=== PATIENT | female | born 1965 | race Caucasian/White ===

== ENCOUNTER 2016-10-07 23:45 | Emergency (ER) | payer OTHER ==
[~2016-10-07] VITALS: Ht 162.6 cm; Wt 86.5 kg
[2016-10-08] MEDS ORDERED: ONDANSETRON 4MG ODT PO PRN ×2 (01:15→06:15)
[2016-10-08 01:27] LABS: BASOPHILS % 0.7 % (0.0-2.0); EOSINOPHILS % 0.1 % (0.0-5.0); HEMOGLOBIN. 13.4 g/dL (12.0-16.0); LYMPHOCYTES % 29.3 % (20.0-50.0); MEAN CORPUSCULAR HEMOGLOBIN 30.8 pg (28.0-32.0); MEAN CORPUSCULAR VOLUME 91.8 fL (81.0-99.0); MEAN PLATELET VOLUME 9.4 fl (7.4-10.4); MONOCYTES % 6.5 % (2.0-8.0); NEUTROPHILS % 63.4 % (40.0-76.0); PLATELET 194 x1000/uL (130-400); RED BLOOD CELL COUNT 4.35 mill/uL (4.2-5.4); RED CELL DISTRIBUTION WIDTH 13.9 % (11.6-14.6)
[2016-10-08] MEDS ORDERED: ONDANSETRON HCL 4MG/2ML VIAL IV NR (01:28)
[2016-10-08] MEDS ORDERED: SODIUM CHLORIDE 0.9% 1,000 ML IV ONE (01:28)
[2016-10-08] MEDS ORDERED: MORPHINE SULFATE 4 MG/ML CPJ (NOT FOR IM USE) IV NR (01:28)
[2016-10-08 01:29] LABS: CHLORIDE 101 mEq/L (98-107)
[2016-10-08 01:39] LABS: CARBON DIOXIDE 25 mEq/L (21-32)
[2016-10-08 01:48] LABS: INR 1.1; PROTHROMBIN TIME 11.2 sec
[2016-10-08 02:50] LABS: CLARITY URINE CLEAR (CLEAR); COLOR URINE YELLOW (YELLOW); GLUCOSE URINE NEGATIVE (NEGATIVE); KETONES URINE NEGATIVE (NEGATIVE); LEUKOCYTE ESTERASE URINE NEGATIVE (NEGATIVE); NITRITE URINE NEGATIVE (NEGATIVE); OCCULT BLOOD URINE 2+ (NEGATIVE); PROTEIN URINE NEGATIVE (NEGATIVE); SPECIFIC GRAVITY URINE 1.013 (1.005-1.030); UROBILINOGEN URINE 0.2 E.U./dL (0.2-1.0)
[2016-10-08] MEDS ORDERED: MAGNESIUM/ALUMINUM HYDROXIDE/SIMETHICONE 30ML UDC PO NR (03:46)
[2016-10-08] MEDS ORDERED: VISCOUS LIDOCAINE 2% 15 ML UDC PO NR (03:46)
[2016-10-08] MEDS ORDERED: FAMOTIDINE 20MG/2ML VIAL IV NR (03:46)
[2016-10-08] MEDS ORDERED: MORPHINE SULFATE 4 MG/ML CPJ (NOT FOR IM USE) IV ONE (04:15)
[2016-10-08] MEDS ORDERED: HYDROCODONE/APAP 7.5/325MG 1 TAB TABLET PO ONE (06:15)
[2016-10-08 07:26] VITALS: BP 105/54
== END 2016-10-08 08:40 | disposition home or self-care (01) ==
LOC: ER 23:49
DX: K52.9 Noninfective gastroenteritis and colitis, unspecified (principal); G89.29 Other chronic pain; K59.00 Constipation, unspecified; J44.9 Chronic obstructive pulmonary disease, unspecified; F31.9 Bipolar disorder, unspecified; Z90.89 Acquired absence of other organs; Z88.2 Allergy status to sulfonamides
CPT/HCPCS: 36415; 74176; 80053; 81001; 83690; 85025; 85610; 96361; 96374; 96375; 96376; 99285; J2270; J2405; J3490; J7030; Q0162; Z7610

== ENCOUNTER 2017-06-04 15:35 | Emergency (ER) | payer MEDICARE, OTHER ==
[~2017-06-04] VITALS: Ht 165.1 cm; Wt 70.0 kg
[2017-06-04] MEDS ORDERED: DIPHENHYDRAMINE 50MG/ML VIAL IM STA (18:40)
[2017-06-04] MEDS ORDERED: LORAZEPAM 2MG/ML CPJ IM STA (18:40)
[2017-06-04] MEDS ORDERED: OLANZAPINE 10 MG/VIAL IM STA (18:40)
[2017-06-04 21:53] LABS: CHLORIDE 96 mEq/L (98-107)
[2017-06-04 21:55] LABS: HEMOGLOBIN. 13.5 g/dL (12.0-16.0); MEAN CORPUSCULAR HEMOGLOBIN 31.1 pg (28.0-32.0); MEAN CORPUSCULAR VOLUME 92.4 fL (81.0-99.0); MEAN PLATELET VOLUME 9.4 fl (7.4-10.4); PLATELET 206 x1000/uL (130-400); RED BLOOD CELL COUNT 4.33 mill/uL (4.2-5.4); RED CELL DISTRIBUTION WIDTH 13.5 % (11.6-14.6)
[2017-06-04 21:58] LABS: ETHANOL BLOOD < 10 mg/dL
[2017-06-04 22:26] LABS: PLATELET ESTIMATE NORMAL
[2017-06-04 23:59] LABS: CLARITY URINE TURBID (CLEAR); COLOR URINE YELLOW (YELLOW); KETONES URINE 1+ (NEGATIVE); LEUKOCYTE ESTERASE URINE 1+ (NEGATIVE); NITRITE URINE NEGATIVE (NEGATIVE); OCCULT BLOOD URINE 2+ (NEGATIVE); PH URINE 5.5 (4.5-8.0); PROTEIN URINE 2+ (NEGATIVE); SPECIFIC GRAVITY URINE 1.016 (1.005-1.030); UROBILINOGEN URINE 0.2 E.U./dL (0.2-1.0)
[2017-06-05 00:57] LABS: *AMPHETAMINES SCREEN URINE NEGATIVE (NEGATIVE); *BARBITURATES SCREEN URINE NEGATIVE (NEGATIVE); *BENZODIAZEPINES SCREEN URINE PRESUMTIVE POSITIVE (NEGATIVE); *COCAINE SCREEN URINE NEGATIVE (NEGATIVE); CANNABINOID URINE SCREEN NEGATIVE (NEGATIVE); METHADONE URINE SCREEN NEGATIVE (NEGATIVE); OPIATES URINE SCREEN PRESUMTIVE POSITIVE (NEGATIVE); PHENCYCLIDINE URINE SCREEN NEGATIVE (NEGATIVE)
[2017-06-05 11:11] VITALS: BP 155/88
== END 2017-06-05 11:12 | disposition home or self-care (01) ==
LOC: ER 16:02
DX: N39.0 Urinary tract infection, site not specified (principal); R45.1 Restlessness and agitation; R03.0 Elevated blood-pressure reading, without diagnosis of hypertension; J45.909 Unspecified asthma, uncomplicated; Z88.2 Allergy status to sulfonamides
CPT/HCPCS: 36415; 80053; 80305; 81003; 81025; 82962; 85025; 87086; 96372; 99284; G0482; J1200; J2060; J3490

== ENCOUNTER 2018-03-23 09:24 | Emergency (ER) | payer MEDICARE, MEDICAID, OTHER ==
[~2018-03-23] VITALS: Ht 165.1 cm; Wt 80.0 kg
[2018-03-23 11:10] LABS: CLARITY URINE CLOUDY (CLEAR); COLOR URINE DARK YELLOW (YELLOW); KETONES URINE 2+ (NEGATIVE); LEUKOCYTE ESTERASE URINE 1+ (NEGATIVE); NITRITE URINE NEGATIVE (NEGATIVE); OCCULT BLOOD URINE 3+ (NEGATIVE); PH URINE 5.5 (4.5-8.0); PROTEIN URINE 2+ (NEGATIVE); SPECIFIC GRAVITY URINE 1.034 (1.005-1.030)
[2018-03-23 11:15] LABS: BASOPHILS % 0.2 % (0.0-2.0); HEMATOCRIT. 38.5 % (36.0-48.0); MEAN CORPUSCULAR HEMOGLOBIN 31.1 pg (28.0-32.0); MEAN CORPUSCULAR VOLUME 92.4 fL (81.0-99.0); MEAN PLATELET VOLUME 9.2 fl (7.4-10.4); MONOCYTES % 5.4 % (2.0-8.0); NEUTROPHILS % 80.4 % (40.0-76.0); PLATELET 225 x1000/uL (130-400); RED BLOOD CELL COUNT 4.17 mill/uL (4.2-5.4); RED CELL DISTRIBUTION WIDTH 14.4 % (11.6-14.6)
[2018-03-23 11:24] LABS: CHLORIDE 102 mEq/L (98-107)
[2018-03-23 11:26] LABS: *AMPHETAMINES SCREEN URINE NEGATIVE (NEGATIVE); *BARBITURATES SCREEN URINE NEGATIVE (NEGATIVE); *BENZODIAZEPINES SCREEN URINE NEGATIVE (NEGATIVE); *COCAINE SCREEN URINE NEGATIVE (NEGATIVE); CANNABINOID URINE SCREEN PRESUMTIVE POSITIVE (NEGATIVE); METHADONE URINE SCREEN NEGATIVE (NEGATIVE)
[2018-03-23 11:27] LABS: OPIATES URINE SCREEN NEGATIVE (NEGATIVE)
[2018-03-23 11:30] LABS: PHENCYCLIDINE URINE SCREEN NEGATIVE (NEGATIVE)
[2018-03-23 11:32] LABS: ETHANOL BLOOD < 10 mg/dL
[2018-03-23] MEDS ORDERED: LIDOCAINE HCL 1% 20ML VIAL (Pyxis) INJ INFIL ONE (12:45)
[2018-03-23] MEDS ORDERED: CEFTRIAXONE SODIUM 1 G/VIAL IM ONE (12:45)
[2018-03-23] MEDS ORDERED: LORAZEPAM 2MG/ML CPJ IM ONE ×2 (13:15→22:45)
[2018-03-23] MEDS ORDERED: OLANZAPINE 10 MG/VIAL IM ONE (22:45)
[2018-03-23 23:35] VITALS: BP 161/78
== END 2018-03-24 01:30 ==
LOC: ER 09:24
DX: N39.0 Urinary tract infection, site not specified (principal); F23 Brief psychotic disorder; F98.9 Unspecified behavioral and emotional disorders with onset usually occurring in childhood and adolescence; J45.909 Unspecified asthma, uncomplicated; F31.9 Bipolar disorder, unspecified; Z88.2 Allergy status to sulfonamides
CPT/HCPCS: 36415; 80053; 80305; 80307; 80329; 81003; 81025; 85025; 96372; 99285; G0482; J0696; J2060; J3490

== ENCOUNTER 2018-09-04 16:03 | Emergency (ER) | payer MEDICARE, OTHER ==
[~2018-09-04] VITALS: Ht 165.1 cm; Wt 68.0 kg
[2018-09-04 18:51] LABS: BASOPHILS % 0.3 % (0.0-2.0); HEMATOCRIT. 35.9 % (36.0-48.0); HEMOGLOBIN. 12.4 g/dL (12.0-16.0); LYMPHOCYTES % 24.5 % (20.0-50.0); MEAN CORPUSCULAR HEMOGLOBIN 31.5 pg (28.0-32.0); MEAN CORPUSCULAR VOLUME 91.6 fL (81.0-99.0); MEAN PLATELET VOLUME 9.4 fl (7.4-10.4); MONOCYTES % 7.4 % (2.0-8.0); NEUTROPHILS % 67.8 % (40.0-76.0); PLATELET 170 x1000/uL (130-400); RED BLOOD CELL COUNT 3.92 mill/uL (4.2-5.4); RED CELL DISTRIBUTION WIDTH 13.5 % (11.6-14.6)
[2018-09-04 18:56] LABS: CHLORIDE 100 mEq/L (98-107)
[2018-09-04 19:00] LABS: ETHANOL BLOOD < 10 mg/dL
[2018-09-04] MEDS ORDERED: QUETIAPINE FUMARATE 50MG TABLET PO STA (19:08)
[2018-09-04 21:04] LABS: CLARITY URINE CLOUDY (CLEAR); COLOR URINE YELLOW (YELLOW); KETONES URINE TRACE (NEGATIVE); LEUKOCYTE ESTERASE URINE 2+ (NEGATIVE); NITRITE URINE NEGATIVE (NEGATIVE); OCCULT BLOOD URINE 2+ (NEGATIVE); PH URINE 6.5 (4.5-8.0); PROTEIN URINE NEGATIVE (NEGATIVE); SPECIFIC GRAVITY URINE 1.003 (1.005-1.030); UROBILINOGEN URINE 0.2 E.U./dL (0.2-1.0)
[2018-09-04] MEDS ORDERED: LEVOFLOXACIN 250MG TABLET PO ONE (21:30)
[2018-09-04 21:35] LABS: *AMPHETAMINES SCREEN URINE NEGATIVE (NEGATIVE)
[2018-09-04 21:36] LABS: *BARBITURATES SCREEN URINE NEGATIVE (NEGATIVE); *BENZODIAZEPINES SCREEN URINE NEGATIVE (NEGATIVE); *COCAINE SCREEN URINE NEGATIVE (NEGATIVE); CANNABINOID URINE SCREEN PRESUMTIVE POSITIVE (NEGATIVE); METHADONE URINE SCREEN NEGATIVE (NEGATIVE); OPIATES URINE SCREEN NEGATIVE (NEGATIVE); PHENCYCLIDINE URINE SCREEN NEGATIVE (NEGATIVE)
[2018-09-05 15:57] VITALS: BP 138/72
== END 2018-09-05 16:04 | disposition home or self-care (01) ==
LOC: ER 18:31
DX: F22 Delusional disorders (principal); N39.0 Urinary tract infection, site not specified; F17.200 Nicotine dependence, unspecified, uncomplicated; F31.9 Bipolar disorder, unspecified; Z88.2 Allergy status to sulfonamides
CPT/HCPCS: 36415; 80305; 80320; 99284; G0480